=== PATIENT | male | born 1965 | race Asian ===

== ENCOUNTER 2017-04-01 15:50 | Emergency (ER) | payer OTHER ==
[~2017-04-01] VITALS: Ht 165.1 cm; Wt 61.2 kg
[2017-04-01] MEDS ORDERED: PREDNISONE20 MG ORAL (16:19)
[2017-04-01] MEDS ORDERED: KENALOG 0.025%15 GM APPLIC (16:19)
[2017-04-01] MEDS ORDERED: BENADRYL25 MG ORAL (16:19)
[2017-04-01 16:28] VITALS: BP 118/70
--- NOTE | 2017-04-01 18:56 | Emergency Room Report ---
History of Present Illness General Chief Complaint: Skin Rash/Abscess Source: Patient Present Illness HPI The patient is a 52-year-old male presenting for insect bites. He states that he was in the garden yesterday and awoke this morning with red ospina on the left forearm. He describes this as itchy. He denies any pain. He has not tried any medications yet. He denies any known allergies. He denies any other symptoms including nausea, vomiting, fever, chills, diarrhea Allergies: Coded Allergies: No Known Allergies (Unverified , 04/01/17) Patient History Past Medical History: see triage record Pertinent Family History: none Reviewed Nursing Documentation: PMH: Agreed, PSxH: Agreed Nursing Documentation-PMH Past Medical History: No Stated History Review of Systems All Other Systems: negative except mentioned in HPI Physical Exam Vital Signs Date Time Temp Pulse Resp B/P (MAP) Pulse Ox O2 Delivery O2 Flow Rate FiO2 04/01/17 15:53 97.5 60 20 118/70 99 Room Air Sp02 EP Interpretation: reviewed, normal General Appearance: no apparent distress, alert, GCS 15, non-toxic Head: normocephalic, atraumatic Eyes: bilateral eye normal inspection, bilateral eye PERRL ENT: hearing grossly normal, normal pharynx, no angioedema, normal voice Neck: full range of motion, supple/symm/no masses Respiratory: chest non-tender, lungs clear, normal breath sounds, speaking full sentences Cardiovascular #1: regular rate, rhythm, no edema Musculoskeletal: back normal, gait/station normal, normal range of motion, non- tender Neurologic: alert, oriented x3, responsive, motor strength/tone normal, sensory intact, speech normal Psychiatric: judgement/insight normal, memory normal, mood/affect normal, no suicidal/homicidal ideation Skin: rash - There are 3 circular erythematous lesions to the L forearm with central puncture humza. Non tender. No clearing. No fluctuance Medical Decision Making PA Attestation Dr. Barraza is my supervising physician. Patient management was discussed with my supervising physician Diagnostic Impression: Primary Impression: Insect bite Qualified Codes: W57.XXXA - Bitten or stung by nonvenomous insect and other nonvenomous arthropods, initial encounter ER Course The patient is a 52-year-old male presenting for insect bites Ddx considered include but not limited to insect bite, contact dermatitis, eczema, cellulitis Physical exam consistent with insect bites with localized reaction. The patient will be discharged home with a prescription for Benadryl and prednisone. Is also given triamcinolone cream. He will follow up with primary doctor. ER precautions are given including fever , increased redness, pain, streaking Last Vital Signs Date Time Temp Pulse Resp B/P (MAP) Pulse Ox O2 Delivery O2 Flow Rate FiO2 04/01/17 16:28 97.5 69 20 118/70 99 Room Air Status: improved Disposition: HOME, SELF-CARE Condition: Improved Scripts Triamcinolone Acet (Triamcinolone Acetonide) 15 Gm Cream..g. 15 GM APPLIC TID, #15 GM Prov: TIFFANIE PENG.A. 04/01/17 Diphenhydramine Hcl* (BENADRYL*) 25 Mg Capsule 25 MG ORAL Q6H Y for Itching, #30 CAP Prov: TIFFANIE PENG P.A. 04/01/17 Prednisone* (PREDNISONE*) 20 Mg Tablet 40 MG ORAL DAILY, #10 TAB Prov: TIFFANIE PENG P.A. 04/01/17 Referrals: [facility],REFERRING (PCP) Patient Instructions: Rash Additional Instructions: I discussed my findings with the patient. All questions and concerns have been answered. Treatment and medication compliance have been addressed. I advised the patient that they need to follow up with PMD in 3-5 days. Return to ED if symptoms worsen, new symptoms arise such as fever, or if needed for any reason. Patient verbalized understanding of discharge instructions. Return to emergency Department if you notice red streaks on the arm or if redness increases. TIFFANIE PENG Apr 01, 2017 18:56
== END 2017-04-01 16:29 | disposition home or self-care (01) ==
LOC: EMR 16:28
DX: S50.862A Insect bite (nonvenomous) of left forearm, initial encounter (principal); W57.XXXA Bitten or stung by nonvenomous insect and other nonvenomous arthropods, initial encounter; Y93.9 Activity, unspecified; Y92.9 Unspecified place or not applicable
CPT/HCPCS: 99284

== ENCOUNTER 2020-02-28 16:01 | Emergency (ER) | payer OTHER ==
[~2020-02-28] VITALS: Ht 165.1 cm; Wt 59.0 kg
[~2020-02-28 16:01] MED LIST: BENADRYL25 MG ORAL; KENALOG 0.025%15 GM APPLIC; PREDNISONE20 MG ORAL
[2020-02-28 16:21] VITALS: BP 110/70
--- NOTE | 2020-02-28 16:44 | Emergency Room Report ---
History of Present Illness General Chief Complaint: General Complaint Source: Patient Present Illness HPI 55 year old male with history of high cholesterol and hypothyroidism, not taking medication, presents with "discomfort" to the left neck for one month. He was diagnosed with hypothyroidism 4 years ago and took Levothyroxine for one year but has not taken any since then due to not having a PCP. He denies any pain, limited range of motion, fever, sore throat, difficulty swallowing, weight loss, dry skin, heat or cold intolerance, hair loss. He is concerned about his thyroid. He is not able to get a PCP appointment for another 2 months. Allergies: Coded Allergies: No Known Allergies (Unverified , 04/01/17) COVID-19 Screening Contact w/high risk pt: No Experienced COVID-19 symptoms?: No COVID-19 Testing performed PROPOSAL LEAD WRITER: No Patient History Past Medical History: see triage record Reviewed Nursing Documentation: PMH: Agreed; PSxH: Agreed Nursing Documentation-PMH Past Medical History: No History, Except For Review of Systems All Other Systems: negative except mentioned in HPI Physical Exam Vital Signs Date Time Temp Pulse Resp B/P (MAP) Pulse Ox O2 Delivery O2 Flow Rate FiO2 02/28/20 16:14 98.6 74 18 108/62 (77) 99 Room Air Sp02 EP Interpretation: reviewed, normal General Appearance: normal inspection, well appearing, no apparent distress, alert, GCS 15, non-toxic ENT: EOM grossly intact, normal pharynx, normal voice, TMs + canals normal, uvula midline Neck: normal inspection, full range of motion, supple, thyroid normal, no meningismus, no bony tend Respiratory: chest non-tender, lungs clear, normal breath sounds, no respiratory distress Cardiovascular #1: normal peripheral pulses, regular rate, rhythm Musculoskeletal: normal inspection, normal range of motion, gait/station normal Neurologic: alert, motor strength/tone normal, design and sales consultant III-XII nml as tested, oriented x3, sensory intact, speech normal Psychiatric: anxious Skin: no rash, normal color, warm/dry Lymphatic: no adenopathy Medical Decision Making PA Attestation Dr. Love is my supervising physician whom patient management and care has been discussed with. Diagnostic Impression: Primary Impression: Neck discomfort ER Course Pt. presents to the ED c/o left neck "discomfort" for one month in the context of hypothyroidism, not taking Levothyroxine for past 3 years. Ddx considered but are not limited to goiter, thyroid cancer, hypothyroidism. Vital signs: are WNL, pt. is afebrile H&PE are most consistent with unspecified neck discomfort. ORDERS: Basic labs, thyroid studies, and thyroid ultrasound ordered. All results normal. ED INTERVENTIONS: None required at this time. DISCHARGE: At this time pt. is stable for d/c to home. Will provide printed patient care instructions, and any necessary prescriptions. Advised to follow up outpatient in 1-2 days. Care plan and follow up instructions have been discussed with the patient prior to discharge. Laboratory Tests Test 02/28/20 16:30 White Blood Count 7.4 K/UL (4.8-10.8) Red Blood Count 5.29 M/UL (4.70-6.10) Hemoglobin 15.9 G/DL (14.2-18.0) Hematocrit 49.0 % (42.0-52.0) Mean Corpuscular Volume 93 FL (80-99) Mean Corpuscular Hemoglobin 30.1 PG (27.0-31.0) Mean Corpuscular Hemoglobin Concent 32.5 G/DL (32.0-36.0) Red Cell Distribution Width 12.1 % (11.6-14.8) Platelet Count 250 K/UL (150-450) Mean Platelet Volume 6.9 FL (6.5-10.1) Neutrophils (%) (Auto) 62.6 % (45.0-75.0) Lymphocytes (%) (Auto) 24.8 % (20.0-45.0) Monocytes (%) (Auto) 8.0 % (1.0-10.0) Eosinophils (%) (Auto) 3.2 % (0.0-3.0) H Basophils (%) (Auto) 1.4 % (0.0-2.0) Sodium Level 137 MMOL/L (136-145) Potassium Level 3.7 MMOL/L (3.5-5.1) Chloride Level 102 MMOL/L (98-107) Carbon Dioxide Level 28 MMOL/L (21-32) Anion Gap 7 mmol/L (5-15) Blood Urea Nitrogen 16 mg/dL (7-18) Creatinine 1.1 MG/DL (0.55-1.30) Estimated Glomerular Filtration Rate > 60 mL/min (>60) Glucose Level 118 MG/DL (74-106) H Calcium Level 9.2 MG/DL (8.5-10.1) Thyroid Stimulating Hormone (TSH) 2.747 uiU/mL (0.358-3.740) Free Triiodothyronine 3.3 pg/mL (2.3-4.2) CT/MRI/US Diagnostic Results CT/MRI/US Diagnostic Results : Impression Thyroid ultrasound, per radiologist: Impression: 1. Unremarkable ultrasound imaging of the thyroid gland. 2. No focal abnormalities noted. 3. I-123 thyroid scintigraphy with uptake determinations may provide additional information, as deemed clinically necessary. Last Vital Signs Date Time Temp Pulse Resp B/P (MAP) Pulse Ox O2 Delivery O2 Flow Rate FiO2 02/28/20 16:21 70 16 Room Air 02/28/20 16:21 98.6 110/70 99 Disposition: HOME, SELF-CARE Condition: Stable Referrals: NON PHYSICIAN (PCP) Keila Pemberton Feb 28, 2020 16:44
[2020-02-28 16:57] LABS: BASOPHILS % (AUTO) 1.4 % (0.0-2.0); EOSINOPHILS % (AUTO) 3.2 % (0.0-3.0); HEMOGLOBIN 15.9 G/DL (14.2-18.0); LYMPHOCYTES % (AUTO) 24.8 % (20.0-45.0); MEAN CORPUSCULAR VOLUME 93 FL (80-99); NEUTROPHILS % (AUTO) 62.6 % (45.0-75.0); PLATELET COUNT 250 K/UL (150-450); RED BLOOD COUNT 5.29 M/UL (4.70-6.10); RED CELL DISTRIBUTION WIDTH 12.1 % (11.6-14.8); WHITE BLOOD COUNT 7.4 K/UL (4.8-10.8)
[2020-02-28 16:59] LABS: ANION GAP 7 mmol/L (5-15); BLOOD UREA NITROGEN 16 mg/dL (7-18); CALCIUM 9.2 MG/DL (8.5-10.1); CARBON DIOXIDE 28 MMOL/L (21-32); CHLORIDE 102 MMOL/L (98-107); CREATININE 1.1 MG/DL (0.55-1.30); POTASSIUM 3.7 MMOL/L (3.5-5.1); SODIUM 137 MMOL/L (136-145)
[2020-02-28 17:36] VITALS: BP 122/76
--- NOTE | 2020-02-28 18:14 | Diagnostic Imaging Report ---
EXAM: US Soft Tissues Head and Neck, Thyroid CLINICAL HISTORY: PAIN TECHNIQUE: Real-time ultrasound scan of the thyroid gland and soft tissues of the neck with image documentation. COMPARISON: None. FINDINGS: Left thyroid lobe: Left lobe measures 2.8 x 1.1 x 1.1 cm. No enlarged or calcified nodules. Right thyroid lobe: The right lobe of the thyroid gland measures 3.3 x 1.1 x 0.8 cm. No enlarged or calcified nodules. Isthmus: Isthmus measures 0.26 cm. No enlarged or calcified nodules. Lymph nodes: Unremarkable. No lymphadenopathy. Other findings: No intrinsic abnormalities. IMPRESSION: 1. Unremarkable ultrasound imaging of the thyroid gland. 2. No focal abnormalities noted. 3. I-123 thyroid scintigraphy with uptake determinations may provide additional information, as deemed clinically necessary.
== END 2020-02-28 17:36 | disposition home or self-care (01) ==
LOC: EMR 16:26
DX: M54.2 Cervicalgia (principal); E03.9 Hypothyroidism, unspecified
CPT/HCPCS: 36415; 76536; 80048; 84443; 84481; 85025; Z7502; 99284